=== PATIENT | female | born 1970 | race Caucasian/White ===

== ENCOUNTER 2024-12-01 07:17 | Outpatient (CLI) | payer OTHER | END 2024-12-01 07:24 | disposition home or self-care (01) | LOC: TOM 07:17 | PROVIDERS: ATTEND Internal Medicine Gastroenterology | DX: K29.70 Gastritis, unspecified, without bleeding (principal); R19.5 Other fecal abnormalities; C18.5 Malignant neoplasm of splenic flexure; K57.92 Diverticulitis of intestine, part unspecified, without perforation or abscess without bleeding ==